=== PATIENT | female | born 1975 | race Caucasian/White ===

== ENCOUNTER 2017-12-22 11:41 | Inpatient (IN) | payer SELFPAY ==
[2017-12-22] MEDS ORDERED: MOM 30ML SUSPENSION UDC PO (15:00)
[2017-12-22] MEDS ORDERED: traZODone 50 MG TAB PO (15:00)
[2017-12-22] MEDS ORDERED: MAALOX 30 ML SUSP *UDC PO (15:00)
[2017-12-22] MEDS ORDERED: LORazepam 1 MG TAB PO (15:00)
[2017-12-22] MEDS ORDERED: ACETAMINOPHEN TAB 650MG DOSE (2X325MG) PO (15:00)
[2017-12-22] MEDS: risperiDONE 1 MG TAB PO ×2 (16:00→20:45)
[2017-12-23 06:37] LABS: BASO # 0.1 10^3/uL (0.0-0.2); BASO % 0.7 % (0.0-1.0); EOS # 0.3 10^3/uL (0.0-0.50); HEMATOCRIT 32.7 % (36.0-47.0); HEMOGLOBIN 10.3 g/dl (12.0-15.5); IMMATURE GRANULOCYTE % 0.2 % (0-3.0); LYMPH # 2.2 10^3/uL (1.5-4.5); LYMPH % 27.2 % (24.0-44.0); MEAN CORPUSCULAR HEMOGLOBIN 25.1 pg (27.0-33.0); MEAN CORPUSCULAR HGB CONC 31.5 g/dl (32.0-36.5); MEAN CORPUSCULAR VOLUME 79.6 fl (80.0-96.0); MONO # 0.7 10^3/uL (0.0-0.8); MONO % 8.3 % (0.0-5.0); NEUTROPHILS % 60.6 % (36.0-66.0); PLATELET COUNT, AUTOMATED 319 10^3/uL (150-450); RED BLOOD COUNT 4.11 10^6/uL (4.00-5.40); RED CELL DISTRIBUTION WIDTH 20.4 % (11.5-14.5); WHITE BLOOD COUNT 8.2 10^3/uL (4.0-10.0)
[2017-12-23 07:03] LABS: ALKALINE PHOSPHATASE 54 U/L (45-117); ALT/SGPT 15 U/L (12-78); ANION GAP 12 MEQ/L (8-16); AST/SGOT 12 U/L (7-37); BLOOD UREA NITROGEN 11 MG/DL (7-18); CALCIUM LEVEL 9.1 MG/DL (8.5-10.1); CARBON DIOXIDE LEVEL 27 MEQ/L (21-32); CHLORIDE LEVEL 103 MEQ/L (98-107); CREATININE FOR GFR 0.69 MG/DL (0.55-1.30); GLOMERULAR FILTRATION RATE > 60.0 (>58); GLUCOSE, FASTING 56 MG/DL (70-100); POTASSIUM SERUM 4.3 MEQ/L (3.5-5.1); SODIUM LEVEL 142 MEQ/L (136-145)
[2017-12-23 07:04] LABS: ALBUMIN 3.9 GM/DL (3.2-5.2); ALBUMIN/GLOBULIN RATIO 1.44 (1.00-1.93); BILIRUBIN,TOTAL 0.6 MG/DL (0.2-1.0); FERRITIN 9 NG/ML (8-252); IRON (FE) 16 UG/DL (50-170); PERCENT SATURATION 5.7 % (13.2-45.0); TOTAL IRON BINDING CAPACITY 279 UG/DL (250-450); TOTAL PROTEIN 6.6 GM/DL (6.4-8.2)
[2017-12-23] MEDS: risperiDONE 1 MG TAB PO ×3 (09:00→21:00)
[2017-12-23] MEDS: SERTRALINE HCL 25 MG TABLET PO (09:00)
[2017-12-23 11:04] LABS: VITAMIN B12 LEVEL 561 PG/ML (247-911)
[2017-12-23 11:04] LABS: FOLATE 18.7 NG/ML (>5.4)
[2017-12-24] MEDS: risperiDONE 1 MG TAB PO ×3 (09:00→20:36)
[2017-12-24] MEDS: SERTRALINE HCL 25 MG TABLET PO (09:00)
[2017-12-25] MEDS: SERTRALINE HCL 25 MG TABLET PO (09:00)
[2017-12-25] MEDS: risperiDONE 1 MG TAB PO ×3 (09:00→21:00)
[2017-12-26] MEDS: SERTRALINE HCL 25 MG TABLET PO (09:00)
[2017-12-26] MEDS: risperiDONE 1 MG TAB PO ×3 (09:00→21:00)
[2017-12-27] MEDS: SERTRALINE HCL 25 MG TABLET PO (09:00)
[2017-12-27] MEDS: risperiDONE 1 MG TAB PO ×3 (09:16→21:00)
[2017-12-28] MEDS: risperiDONE 1 MG TAB PO ×3 (08:50→20:32)
[2017-12-28] MEDS: SERTRALINE HCL 25 MG TABLET PO (08:54)
[2017-12-29] MEDS: SERTRALINE HCL 25 MG TABLET PO (08:58)
[2017-12-29] MEDS: risperiDONE 1 MG TAB PO ×3 (08:58→21:00)
[2017-12-30] MEDS: SERTRALINE HCL 25 MG TABLET PO (09:00)
[2017-12-30] MEDS: risperiDONE 1 MG TAB PO ×3 (09:32→21:00)
[2017-12-30] MEDS: FERROUS SULFATE 325MG TAB PO (11:58)
[2017-12-30] MEDS: MIRALAX *UNIT DOSE* 17GM PACKET PO (21:00)
[2017-12-31 08:09] LABS: HEMATOCRIT 32.8 % (36.0-47.0); HEMOGLOBIN 10.2 g/dl (12.0-15.5); MEAN CORPUSCULAR HEMOGLOBIN 25.2 pg (27.0-33.0); MEAN CORPUSCULAR HGB CONC 31.1 g/dl (32.0-36.5); MEAN CORPUSCULAR VOLUME 81.2 fl (80.0-96.0); PLATELET COUNT, AUTOMATED 294 10^3/uL (150-450); RED BLOOD COUNT 4.04 10^6/uL (4.00-5.40); RED CELL DISTRIBUTION WIDTH 20.6 % (11.5-14.5); WHITE BLOOD COUNT 6.9 10^3/uL (4.0-10.0)
[2017-12-31] MEDS: FERROUS SULFATE 325MG TAB PO (08:35)
[2017-12-31] MEDS: risperiDONE 1 MG TAB PO (08:35)
[2017-12-31] MEDS: MIRALAX *UNIT DOSE* 17GM PACKET PO (08:36)
[2017-12-31] MEDS: SERTRALINE HCL 25 MG TABLET PO (08:36)
[2017-12-31 08:45] LABS: ALBUMIN 3.6 GM/DL (3.2-5.2); ALBUMIN/GLOBULIN RATIO 1.03 (1.00-1.93); ALKALINE PHOSPHATASE 52 U/L (45-117); ALT/SGPT 17 U/L (12-78); ANION GAP 7 MEQ/L (8-16); AST/SGOT 12 U/L (7-37); BILIRUBIN,TOTAL 0.2 MG/DL (0.2-1.0); BLOOD UREA NITROGEN 16 MG/DL (7-18); CALCIUM LEVEL 8.7 MG/DL (8.5-10.1); CARBON DIOXIDE LEVEL 29 MEQ/L (21-32); CHLORIDE LEVEL 104 MEQ/L (98-107); CREATININE FOR GFR 0.78 MG/DL (0.55-1.30); GLOMERULAR FILTRATION RATE > 60.0 (>58); GLUCOSE, FASTING 92 MG/DL (70-100); POTASSIUM SERUM 4.3 MEQ/L (3.5-5.1); SODIUM LEVEL 140 MEQ/L (136-145); TOTAL PROTEIN 7.1 GM/DL (6.4-8.2)
== END 2017-12-31 13:25 | disposition home or self-care (01) | DRG 751 ==
LOC: M PSY 12-29 10:54 → M ED 11:41 → M ED INP 14:50 → M PSY 15:58
DX: F32.3 Major depressive disorder, single episode, severe with psychotic features (principal); Z68.1 Body mass index [BMI] 19.9 or less, adult; F17.210 Nicotine dependence, cigarettes, uncomplicated; D50.9 Iron deficiency anemia, unspecified; R63.6 Underweight